=== PATIENT | female | born 1985 | race Asian ===

== ENCOUNTER 2019-05-27 11:30 | Inpatient (IN) | payer OTHER ==
[~2019-05-27] VITALS: Ht 160 cm; Wt 77.1 kg
[2019-05-27] MEDS: LR 1,000 ML IV SCH ×2 (09:19→13:45)
[~2019-05-27 11:30] MED LIST: BUPIVACAINE /PF 0.25% 30 ML VIAL INJ ONE; BUPIVACAINE /PF 0.5% 30 ML VIAL ONE
[2019-05-27] MEDS ORDERED: LR 1,000 ML IV ONE (13:24)
[2019-05-27 13:27] VITALS: BP_SYST 127
[2019-05-27] MEDS ORDERED: NALBUPHINE HCL 10 MG/ML AMP IVP PRN (13:30)
[2019-05-27] MEDS ORDERED: DINOPROSTONE 10 MG SUPP VG ONE (13:30)
[2019-05-27] MEDS ORDERED: TERBUTALINE SULFATE 1 MG/ML VIAL SUBCUT ONE (13:30)
[2019-05-27 14:03] LABS: BASOPHILS # (AUTO) 0.1 K/uL (0.0-0.2); BASOPHILS % (AUTO) 0.7 % (0.0-2.0); EOSINOPHILS # (AUTO) 0.1 K/uL (0.0-0.4); EOSINOPHILS % (AUTO) 1.3 % (0.0-4.0); HEMATOCRIT 35.8 % (36-48); LYMPHOCYTES # (AUTO) 1.6 K/uL (1.0-5.5); LYMPHOCYTES % (AUTO) 17.8 % (20.5-51.5); MEAN CORPUSCULAR HEMOGLOBIN 28 pg (27-31); MEAN CORPUSCULAR HGB CONC 34 % (32-36); MEAN CORPUSCULAR VOLUME 82 fL (79.0-98.0); MONOCYTES # (AUTO) 0.4 K/uL (0.0-1.0); MONOCYTES % (AUTO) 4.2 % (1.7-9.3); NEUTROPHILS # (AUTO) 6.8 K/uL (1.8-7.7); PLATELET COUNT (AUTO) 236 K/uL (130-430); RED BLOOD CELL COUNT(AUTO) 4.35 MIL/uL (4.2-6.2); RED CELL DISTRIBUTION WIDTH 15.8 % (9.0-15.0)
[2019-05-28] MEDS ORDERED: OXYTOCIN/0.9 % SODIUM CHLORIDE 1,000 ML IV ONE (06:38)
[2019-05-28] MEDS ORDERED: OXYTOCIN/0.9 % SODIUM CHLORIDE 1,000 ML IV SCH (07:30)
[2019-05-28] MEDS ORDERED: fentaNYL CITRATE/PF 100 MCG/2 ML AMP ONE (08:58)
[2019-05-28] MEDS ORDERED: ROPIVACAINE HCL/PF 0.2% 100 ML ONE ×2 (08:58→17:50)
[2019-05-28] MEDS ORDERED: LR 500 ML IV ONE (10:14)
[2019-05-28] MEDS ORDERED: fentaNYL CITRATE/PF 100 MCG/2 ML AMP EP ONE (10:15)
[2019-05-28] MEDS ORDERED: FENT2mCg/mL-ROPIVA0.2%/NS EPID 200 ML EP SCH (10:15)
[2019-05-28] MEDS ORDERED: ePHEDrine sulfate 50 MG/ML VIAL IVP PRN (10:15)
[2019-05-28] MEDS: LR 1,000 ML IV SCH (18:27)
[2019-05-29] MEDS ORDERED: ROPIVACAINE HCL/PF 0.2% 100 ML ONE ×3 (01:26→22:50)
[2019-05-29] MEDS: LR 1,000 ML IV SCH ×2 (01:40→17:47)
[2019-05-29] MEDS ORDERED: FENT2mCg/mL-ROPIVA0.2%/NS EPID 150 ML EP SCH (10:00)
[2019-05-29] MEDS ORDERED: fentaNYL CITRATE/PF 100 MCG/2 ML AMP ONE ×2 (10:02→22:50)
[2019-05-29] MEDS ORDERED: ROPIVACAINE 40 MG/20 ML AMP EP ONE (11:21)
[2019-05-29] MEDS ORDERED: FENT2mCg/mL-ROPIVA0.2%/NS EPID 200 ML EP SCH (15:02)
[2019-05-29] MEDS ORDERED: FENT2mCg/mL-ROPIVA0.2%/NS EPID 200 ML EP ONE (15:23)
[2019-05-29] MEDS ORDERED: OXYTOCIN/0.9 % SODIUM CHLORIDE 1,000 ML IV SCH (15:51)
[2019-05-29] MEDS ORDERED: ONDANSETRON HCL 4 MG/2 ML VIAL IVP PRN ×2 (20:30→21:15)
[2019-05-29] MEDS ORDERED: ONDANSETRON HCL 4 MG/2 ML VIAL ONE (20:33)
[2019-05-29] MEDS ORDERED: AMPICILLIN SODIUM 2 GM in NS 100 ML IV ONE (21:15)
[2019-05-29] MEDS ORDERED: AMPICILLIN SODIUM 2 GM VIAL ONE (21:31)
[2019-05-30] MEDS: AMPICILLIN SODIUM 1 GM in NS 50 ML IV SCH ×2 (00:51→04:57)
[2019-05-30] MEDS ORDERED: AMPICILLIN SODIUM 1 GM VIAL ONE ×2 (01:01→05:07)
[2019-05-30] MEDS ORDERED: fentaNYL CITRATE/PF 100 MCG/2 ML AMP ONE ×2 (03:07→03:14)
[2019-05-30] MEDS ORDERED: LR 1,000 ML IV SCH ×2 (06:02→07:43)
[2019-05-30] MEDS ORDERED: CEFAZOLIN 2 GM IVPB PREMIX 50 ML IV ONE ×2 (06:15→06:25)
[2019-05-30] MEDS ORDERED: KETOROLAC TROMETHAMINE 30 MG VIAL IVP ONE (06:25)
[2019-05-30] MEDS ORDERED: MORPHINE SULFATE 10MG/10ML PF AMP EP ONE (06:25)
[2019-05-30] MEDS ORDERED: MIDAZOLAM HCL 5 MG/5 ML VIAL IVP ONE (06:25)
[2019-05-30] MEDS ORDERED: LR 1,000 ML IV.SOLN IV ONE (06:25)
[2019-05-30] MEDS ORDERED: PROPOFOL 200MG/ 20ML VIAL (DIPRIVAN) IV ONE (06:25)
[2019-05-30] MEDS ORDERED: BUPIVACAINE /DEX PF 0.75% SPINAL 2 ML AMP INJ ONE (06:25)
[2019-05-30] MEDS ORDERED: NS IRRIG SOLN 1000 ML IR ONE (06:25)
[2019-05-30] MEDS ORDERED: OXYTOCIN/0.9 % SODIUM CHLORIDE 1,000 ML IV ONE ×2 (07:43→07:59)
[2019-05-30 07:45] VITALS: BP_SYST 120
[2019-05-30] MEDS ORDERED: ONDANSETRON HCL 4 MG/2 ML VIAL IVP PRN (07:45)
[2019-05-30] MEDS ORDERED: HYDROcodone/ACETAMIN 5-325 MG TAB (NORCO/ VICODIN) PO PRN ×2 (07:45)
[2019-05-30] MEDS ORDERED: fentaNYL CITRATE/PF 100 MCG/2 ML AMP IVP PRN ×2 (07:45)
[2019-05-30] MEDS ORDERED: MORPHINE SULFATE 10MG/10ML PF AMP SP SCH (07:45)
[2019-05-30] MEDS ORDERED: RHO(D) IMMUNE GLOBULIN/MALTOSE 1500 UNITS/1.3 ML (WINHRO) IM PRN (07:45)
[2019-05-30] MEDS ORDERED: NALOXONE HCL 0.4 MG/ML AMP (NARCAN) IVP PRN ×2 (07:45)
[2019-05-30] MEDS ORDERED: MEASLES,MUMPS&RUBELLA VACC/PF 12500 UNIT/0.5 ML VIAL SUBQ PRN (07:45)
[2019-05-30] MEDS ORDERED: NALBUPHINE HCL 10 MG/ML AMP IVP PRN (07:45)
[2019-05-30] MEDS ORDERED: LANOLIN 7 GM OINT. TP PRN (07:45)
[2019-05-30] MEDS ORDERED: KETOROLAC TROMETHAMINE 60 MG/2 ML VIAL IM PRN (07:45)
[2019-05-30] MEDS ORDERED: SENNOSIDES/DOCUSATE SODIUM 1 TAB TABLET(SENOKOT-S) PO PRN (07:45)
[2019-05-30] MEDS ORDERED: OXYCODONE/ACETAMINOPHEN 5-325 TABLET PO PRN (07:45)
[2019-05-30] MEDS ORDERED: DIPHENHYDRAMINE INJ 50 MG/ML VIAL IVP PRN (07:45)
[2019-05-30] MEDS ORDERED: BISACODYL 10 MG/SUPPOSITORY RC PRN (07:45)
[2019-05-30] MEDS: CEFAZOLIN 1 GM IVPB PREMIX 50 ML IV SCH ×2 (12:04→19:10)
[2019-05-30] MEDS: LR 1,000 ML IV SCH ×2 (15:20→22:00)
[2019-05-30] MEDS: KETOROLAC TROMETHAMINE 30 MG VIAL IVP SCH (19:11)
[2019-05-30] MEDS ORDERED: TEMAZEPAM 15 MG CAPSULE PO PRN (21:00)
[2019-05-31] MEDS: CEFAZOLIN 1 GM IVPB PREMIX 50 ML IV SCH
[2019-05-31] MEDS: KETOROLAC TROMETHAMINE 30 MG VIAL IVP SCH ×3 (06:00→12:00)
[2019-05-31 06:59] LABS: BASOPHILS % (AUTO) 0.2 % (0.0-2.0); EOSINOPHILS # (AUTO) 0.2 K/uL (0.0-0.4); EOSINOPHILS % (AUTO) 1.3 % (0.0-4.0); HEMATOCRIT 24.6 % (36-48); LYMPHOCYTES # (AUTO) 1.2 K/uL (1.0-5.5); MEAN CORPUSCULAR HEMOGLOBIN 27 pg (27-31); MEAN CORPUSCULAR HGB CONC 33 % (32-36); MEAN CORPUSCULAR VOLUME 83 fL (79.0-98.0); MONOCYTES # (AUTO) 0.8 K/uL (0.0-1.0); MONOCYTES % (AUTO) 5.2 % (1.7-9.3); NEUTROPHILS % (AUTO) 85.3 % (40.0-70.0); PLATELET COUNT (AUTO) 192 K/uL (130-430); RED BLOOD CELL COUNT(AUTO) 2.97 MIL/uL (4.2-6.2); RED CELL DISTRIBUTION WIDTH 15.7 % (9.0-15.0); WHITE BLOOD COUNT (AUTO) 15.2 K/uL (4.8-10.8)
[2019-05-31] MEDS: DOCUSATE SODIUM 100 MG CAPSULE PO PRN ×2 (08:08→23:56)
[2019-05-31] MEDS ORDERED: IBUPROFEN 600 MG TABLET PO ONE (12:00)
[2019-05-31] MEDS ORDERED: IBUPROFEN 600 MG TABLET PO SCH (18:00)
[2019-05-31] MEDS: IBUPROFEN 600 MG TABLET PO SCH (23:55)
[2019-05-31] MEDS: SIMETHICONE 80 MG TAB.CHEW PO PRN (23:58)
[2019-06-01] MEDS: IBUPROFEN 600 MG TABLET PO SCH ×4 (06:00→23:29)
[2019-06-01] MEDS ORDERED: OXYCODONE/ACETAMINOPHEN 5-325 TABLET ONE (09:28)
[2019-06-01] MEDS ORDERED: OXYCODONE/ACETAMINOPHEN 5-325 TABLET PO PRN (09:30)
[2019-06-01] MEDS: SIMETHICONE 80 MG TAB.CHEW PO PRN (21:10)
[2019-06-01] MEDS: DOCUSATE SODIUM 100 MG CAPSULE PO PRN (21:10)
[2019-06-02] MEDS: DOCUSATE SODIUM 100 MG CAPSULE PO PRN ×2 (05:30→12:43)
[2019-06-02] MEDS: IBUPROFEN 600 MG TABLET PO SCH ×2 (05:30→12:42)
[2019-06-02] MEDS ORDERED: PERD5 PO (16:53)
== END 2019-06-02 17:00 | disposition home or self-care (01) | DRG 788 ==
LOC: SPU 11:30
PROVIDERS: ADMIT Specialist; ATTEND Specialist
PROC: 10D00Z1 Extraction of Products of Conception, Low, Open Approach (ICD-10-PCS; principal; 2019-05-30 06:40)
DX: O62.2 Other uterine inertia (principal); Z37.0 Single live birth; O42.02 Full-term premature rupture of membranes, onset of labor within 24 hours of rupture; O41.00X0 Oligohydramnios, unspecified trimester, not applicable or unspecified; O24.429 Gestational diabetes mellitus in childbirth, unspecified control; Z91.040 Latex allergy status; Z3A.38 38 weeks gestation of pregnancy
CPT/HCPCS: 36415; 81002-TC; 82947-TC; 85025; 86592; 86886; 86900; 86901; 94760; J0290; J0690; J1885; J2250; J2274; J2300; J2405; J2590; J2704; J2795; J3010; J3490; J7120